=== PATIENT | female | born 1995 | race Caucasian/White ===

== ENCOUNTER 2022-08-20 18:54 | Day surgery (SDC) | payer OTHER ==
[2022-08-20 19:16] VITALS: BMI 40.7
[2022-08-20] MEDS ORDERED: hydrALAZINE 20 MG/ML VIAL SLOW IVP PRN (19:45)
== END 2022-08-20 21:56 | disposition home or self-care (01) ==
LOC: CSHLD/OP 18:54
PROVIDERS: ATTEND Podiatrist Foot & Ankle Surgery
DX: Z36.89 Encounter for other specified antenatal screening (principal)
CPT/HCPCS: 76819